=== PATIENT | female | born 1995 | race Caucasian/White ===

== ENCOUNTER → 2017-08-05 | Outpatient (CLI) | payer SELFPAY ==
--- NOTE | 2017-08-05 17:03 | RADIOLOGY REPORT (SQ) ---
EXAM DESCRIPTION: U/S [id number] TRNABD 1GES W/ODOP COMPLETED DATE/TIME: 08/05/2017 2:25 pm REASON FOR STUDY: ENCOUNTER FOR SUPERVISION OF OTHER NORMAL , FIRST TRIMESTER Z34.01 ENCNT R FOR SUPRVSN OF NORMAL FIRST PREG, FIRST TRIMES COMPARISON: None. TECHNIQUE: Transabdominal static and realtime grayscale images acquired of the pelvis. Additional se lected spectral and color Doppler images recorded. All images stored on PACs. CG: Not available at this reading LIMITATIONS: None. FINDINGS: EGA: 7 weeks 6 days by ultrasound. CORIE: 03/18/2018 by ultrasound FHR: Not visualized SUBCHORIONIC BLEED: No SIZE OF BLEED: Not applicable. UTERUS: The uterus measures 8.1 x 5.0 x 6.8 cm. Gestation sac is visualized, mean diameter 2.77 cm. CERVICAL LENGTH: The cervical length is 2.5 cm. Closed. RIGHT ADNEXA: Not visualized. LEFT ADNEXA: Not visualized. FREE FLUID: None. OTHER: [place] rump length, heart rate activity and yolk sac are not visualized. IMPRESSION: 1 Gestational sac is visualized. [place]-rump length, heart rate activity and yolk sac, are not visualized. A follow-up examination is suggested in 7 days for re-evaluation EGA: 7 weeks 6 days by ultrasound Trimester of : First - 0 to 13 weeks. TECHNICAL DOCUMENTATION: JOB ID: [id number] [employer]- All Rights Reserved
== END ==
LOC: RAD 13:39
PROVIDERS: ATTEND Nurse Practitioner Women's Health
DX: Z34.01 Encounter for supervision of normal first pregnancy, first trimester (principal)
CPT/HCPCS: 76801

== ENCOUNTER 2017-08-13 18:05 | Emergency (ER) | payer SELFPAY ==
--- NOTE | 2017-08-13 20:12 | ER Document Report ---
ED Medical Screen (RME) - General Chief Complaint: Vaginal Bleeding Stated Complaint: VAGINAL BLEEDING Time Seen by Provider: 08/13/17 20:01 Mode of Arrival: Ambulatory Information source: Patient Notes: Patient is a 21 year old female who is currently 7 weeks presents to the emergency department complaining of vaginal discharge onset today. Patient states that she noticed "old blood" on the toilet paper when she wiped today. Patient states that she has a scheduled ultrasound appointment on 08/15/2017. Patient is G1. TRAVEL OUTSIDE OF THE [place] IN LAST 30 DAYS: No - HPI Onset: This afternoon Onset/Duration: Sudden - Related Data Allergies/Adverse Reactions: No Known Allergies Allergy (Verified 08/13/17 18:06) Past Medical History - General Information source: Patient Last Menstrual Period: 06/01/17 - Social History Family history: Reviewed & Not Pertinent Renal/ Medical History: Denies: Hx Peritoneal Dialysis Review of Systems - Review of Systems Constitutional: No symptoms reported EENT: No symptoms reported Cardiovascular: No symptoms reported Respiratory: No symptoms reported Gastrointestinal: No symptoms reported Genitourinary: No symptoms reported Female Genitourinary: See HPI, , Vaginal bleeding Musculoskeletal: No symptoms reported Skin: No symptoms reported Hematologic/Lymphatic: No symptoms reported Neurological/Psychological: No symptoms reported -: Yes All other systems reviewed and negative Physical Exam - Vital signs Vitals: Temp Pulse Resp BP Pulse Ox 97.7 F 82 20 124/85 100 08/13/17 18:08 08/13/17 18:08 08/13/17 18:08 08/13/17 18:08 08/13/17 18:08 - Notes Notes: GENERAL: Alert, interacts well. No acute distress. HEAD: Normocephalic, atraumatic. EYES: Pupils equal, round, and reactive to light. Extraocular movements intact. ENT: Oral mucosa moist, tongue midline. NECK: Full range of motion. Supple. Trachea midline. LUNGS: Clear to auscultation bilaterally, no wheezes, rales, or rhonchi. No respiratory distress. HEART: Regular rate and rhythm. No murmurs, gallops, or rubs. ABDOMEN: Soft, non-tender. Non-distended. Bowel sounds present in all 4 quadrants. EXTREMITIES: Moves all 4 extremities spontaneously. NEUROLOGICAL: Alert and oriented x3. Normal speech. PSYCH: Normal affect, normal mood. SKIN: Warm, dry, normal turgor. No rashes or lesions noted. Course - Re-evaluation Re-evalutation: 08/13/17 20:07 Patient's RhoGam status will be checked as well as a transvaginal ultrasound to determine stage of and confirm RH type and vaginal bleeding. Patient stated she has an scheduled appointment to have a transvaginal ultrasound performed on 08/15/2017. 08/13/17 20:43 - Vital Signs Vital signs: Temp Pulse Resp BP Pulse Ox 97.7 F 82 20 124/85 100 08/13/17 18:08 08/13/17 18:08 08/13/17 18:08 08/13/17 18:08 08/13/17 18:08 - Laboratory Laboratory results interpreted by me: 08/13/17 20:15 Urine Blood MODERATE H Scribe Documentation - Scribe Written by Yudelka:: Yudelka Michel, 08/13/2017 20:13 acting as scribe for :: Gabe
[2017-08-13 20:32] LABS: APPEARANCE,URINE CLEAR; BILIRUBIN,URINE NEGATIVE (NEGATIVE); COLOR,URINE STRAW; GLUCOSE, URINE NEGATIVE (NEGATIVE); KETONES,URINE NEGATIVE (NEGATIVE); LEUKOCYTE ESTERASE,URINE NEGATIVE (NEGATIVE); NITRITE,URINE NEGATIVE (NEGATIVE); PROTEIN,URINE NEGATIVE (NEGATIVE); URINE SPECIFIC GRAVITY 1.006; UROBILINOGEN,URINE NEGATIVE mg/dL (<2.0)
--- NOTE | 2017-08-13 21:18 | ER Document Report ---
ED General - General Chief Complaint: Vaginal Bleeding Stated Complaint: VAGINAL BLEEDING Time Seen by Provider: 08/13/17 20:01 Mode of Arrival: Ambulatory Information source: Patient Notes: This is a 21-year-old female who presents to the emergency room with scant amount of vaginal bleeding. She did have an ultrasound 1 week ago which showed evidence of an early IUP (there was no heartbeat at that time). She denies any shanda abdominal pain. She denies any active vaginal bleeding at this time. TRAVEL OUTSIDE OF THE [place] IN LAST 30 DAYS: No - HPI Onset: Just prior to arrival Onset/Duration: Sudden Quality of pain: No pain Severity: None Pain Level: Denies Associated symptoms: denies: Chills, Fever, Nausea, Shortness of breath Exacerbated by: Denies Relieved by: Denies Similar symptoms previously: No Recently seen / treated by doctor: No - Related Data Allergies/Adverse Reactions: No Known Allergies Allergy (Verified 08/13/17 18:06) Past Medical History - General Information source: Patient Last Menstrual Period: 06/01/17 - Social History Smoking Status: Never Smoker Cigarette use (# per day): No Chew tobacco use (# tins/day): No Smoking Education Provided: No Frequency of alcohol use: None Drug Abuse: None Lives with: Family Family History: None Patient has suicidal ideation: No Patient has homicidal ideation: No - Past Medical History Cardiac Medical History: Reports: None Pulmonary Medical History: Reports: None EENT Medical History: Reports: None Neurological Medical History: Reports: None Endocrine Medical History: Reports: None Renal/ Medical History: Reports: None. Denies: Hx Peritoneal Dialysis Malignancy Medical History: Reports: None GI Medical History: Reports: None Musculoskeltal Medical History: Reports None Skin Medical History: Reports None Psychiatric Medical History: Reports: None Traumatic Medical History: Reports: None Infectious Medical History: Reports: None Surgical Hx: Negative Review of Systems - Review of Systems Constitutional: denies: Chills, Fever EENT: No symptoms reported Cardiovascular: No symptoms reported Respiratory: No symptoms reported Gastrointestinal: No symptoms reported Genitourinary: See HPI Female Genitourinary: See HPI Musculoskeletal: No symptoms reported Skin: No symptoms reported Hematologic/Lymphatic: No symptoms reported Neurological/Psychological: No symptoms reported Physical Exam - Vital signs Vitals: Temp Pulse Resp BP Pulse Ox 97.7 F 82 20 124/85 100 01/30/18 18:08 08/13/17 18:08 08/13/17 18:08 08/13/17 18:08 08/13/17 18:08 Notes: Physical exam: GENERAL: An-year-old female, alert and oriented 3, no acute distress HEAD: Atraumatic, normocephalic. EYES: Pupils equal round and reactive to light, extraocular movements intact, sclera anicteric, conjunctiva are normal. ENT: TMs normal, nares patent, oropharynx clear without exudates. Moist mucous membranes. NECK: Normal range of motion, supple without obvious mass or JVD. LUNGS: Breath sounds clear to auscultation bilaterally and equal. No wheezes rales or rhonchi. HEART: Regular rate and rhythm without murmurs, rubs or gallops. ABDOMEN: Soft, normoactive bowel sounds. No tenderness to palpation. No guarding, no rebound. No masses appreciated. EXTREMITIES: Normal range of motion, no pitting or edema. No clubbing or cyanosis. NEUROLOGICAL: Cranial nerves II through XII grossly intact. Normal speech, moving all extremities. PSYCH: Normal mood, normal affect. SKIN: Warm, Dry, normal turgor, no rashes or lesions noted. Course - Vital Signs Vital signs: Temp Pulse Resp BP Pulse Ox 98.5 F 81 20 101/61 100 08/13/17 22:52 08/13/17 22:52 08/13/17 18:08 08/13/17 22:52 08/13/17 22:52 - Laboratory Laboratory results interpreted by me: 08/13/17 08/13/17 20:15 20:15 Beta HCG, Quant 41415.00 H Urine Blood MODERATE H - Diagnostic Test Radiology reviewed: Image reviewed, Reports reviewed - Transvaginal ultrasound shows a 7 week gestation intrauterine without a heartbeat. Discharge - Discharge Clinical Impression: Vaginal bleeding Condition: Stable Disposition: HOME, SELF-CARE Instructions: Leonel ([facility]) Additional Instructions: As we discussed, the ultrasound showed an intrauterine at 7 weeks gestation without a heartbeat. This suggests he may be having a demise. I would like you to follow-up with the [facility]. He should call the health department to get a referral. I will leave the number for the [facility] clinic. Your blood type was Rh- and you did get RhoGam while in the emergency room. Return to the emergency room for any abdominal pain or worsening bleeding. Referrals: RAUL JENKINS MD [ACTIVE STAFF] - Follow up as needed (This is the number the [facility])
--- NOTE | 2017-08-13 21:47 | RADIOLOGY REPORT (SQ) ---
EXAM DESCRIPTION: U/S OB TRANSVAG W/DOPPLER COMPLETED DATE/TIME: 08/13/2017 9:22 pm REASON FOR STUDY: pelvic pain, back pain COMPARISON: None. TECHNIQUE: Transvaginal static and realtime grayscale images acquired of the pelvis. Additional dania cted spectral and color Doppler images recorded. All images stored on PACs. bHCG: Not available. LIMITATIONS: None. FINDINGS: FETUS: IUP, pole measuring 1.0 cm. EGA: 7 week 1 day CORIE: 03/31/2018 FHR: Cardiac activity not visualized. SUBCHORIONIC BLEED: Yes. SIZE OF BLEED: 1.4 cm. UTERUS: No masses. No anomalies. CERVICAL LENGTH: 2.8 cm. Closed. RIGHT ADNEXA: Ovary not identified. No adnexal free fluid. No adnexal masses. LEFT ADNEXA: Normal ovary with normal vascular flow. No adnexal free fluid. No adnexal masses. FREE FLUID: None. OTHER: No other significant finding. IMPRESSION: An IUP is present with pole measuring approximately 1 cm. This corresponds to a 7 week 1 day gestation. Cardiac activity would typically be seen at this stage, but is not on today's study. demise is possible. Close followup advised. Small subchorionic hematoma is present. Trimester of : First - 0 to 13 weeks. TECHNICAL DOCUMENTATION: JOB ID: [id number]- All Rights Reserved
[2017-08-13 22:55] VITALS: BP 101/61
== END 2017-08-13 23:29 | disposition home or self-care (01) ==
LOC: ER 18:05
DX: O20.9 Hemorrhage in early pregnancy, unspecified (principal); Z3A.01 Less than 8 weeks gestation of pregnancy
CPT/HCPCS: 99284; 96374; 86900; 86901; 36415; 86850; 84702; 81001; 76817; 93976; J2790

== ENCOUNTER → 2017-08-20 | Outpatient (CLI) | payer MEDICAID | LOC: OCH 17:43 | PROVIDERS: ATTEND Nurse Practitioner Women's Health | DX: O36.80X0 Pregnancy with inconclusive fetal viability, not applicable or unspecified (principal) | CPT/HCPCS: 36415; 84702 ==

== ENCOUNTER 2017-08-25 01:49 | Emergency (ER) | payer MEDICAID ==
[2017-08-25] MEDS ORDERED: NORMAL SALINE 1000 ML 1,000 ML IV ONE ×2 (02:45)
[2017-08-25] MEDS ORDERED: ONDANSETRON HCL INJ/PF 4 MG/2 ML SDV IV ONE ×2 (02:48→03:34)
[2017-08-25] MEDS ORDERED: MORPHINE SULFATE 10 MG/ML INJ IV ONE (02:48)
[2017-08-25] MEDS ORDERED: FENTANYL CITRATE INJ/PF 100 MCG/2 ML AMPUL IV ONE ×3 (02:52→04:37)
[2017-08-25 03:22] LABS: ABSOLUTE LYMPHOCYTES (AUTO) 0.9 10^3/uL (0.5-4.7); ABSOLUTE MONOCYTES (AUTO) 0.3 10^3/uL (0.1-1.4); ABSOLUTE NEUT (AUTO) 8.1 10^3/uL (1.7-8.2); BASOPHILS % (AUTO) 0.2 % (0-2); EOSINOPHILS % (AUTO) 0.5 % (0-6); HEMATOCRIT 37.6 % (36.0-47.0); HEMOGLOBIN 12.8 g/dL (12.0-15.5); LYMPHOCYTES % (AUTO) 9.1 % (13-45); MEAN CORPUSCULAR HEMOGLOBIN 29.4 pg (27.0-33.4); MEAN CORPUSCULAR VOLUME 86 fl (80-97); MONOCYTES % (AUTO) 2.8 % (3-13); PLATELET COUNT 242 10^3/uL (150-450); RED BLOOD COUNT 4.36 10^6/uL (3.72-5.28); RED CELL DISTRIBUTION WIDTH 13.2 % (11.5-14.0); SEGMENTED NEUTROPHILS % (AUTO) 87.4 % (42-78); TOTAL CELLS COUNTED % (AUTO) 100 %; WHITE BLOOD COUNT 9.3 10^3/uL (4.0-10.5)
[2017-08-25 03:35] LABS: ALANINE AMINOTRANSFERASE 40 U/L (9-52); ALBUMIN 4.3 g/dL (3.5-5.0); ALKALINE PHOSPHATASE 76 U/L (38-126); ANION GAP 7 (5-19); ASPARTATE AMINO TRANSFERASE 31 U/L (14-36); BILIRUBIN,DIRECT 0.3 mg/dL (0.0-0.4); BILIRUBIN,TOTAL 0.5 mg/dL (0.2-1.3); BLOOD UREA NITROGEN 11 mg/dL (7-20); CALCIUM 9.5 mg/dL (8.4-10.2); CARBON DIOXIDE 26 mmol/L (22-30); CHLORIDE 106 mmol/L (98-107); GLUCOSE 147 mg/dL (75-110); LIPASE 90.4 U/L (23-300); POTASSIUM 3.8 mmol/L (3.6-5.0); SODIUM 139.4 mmol/L (137-145); TOTAL PROTEIN 6.7 g/dL (6.3-8.2)
[2017-08-25] MEDS ORDERED: DICYCLOMINE HCL INJ 20 MG/2 ML AMPULE IM ONE (04:45)
--- NOTE | 2017-08-25 04:45 | RADIOLOGY REPORT (SQ) ---
EXAM DESCRIPTION: U/S 1TRIMESTER/1GEST W/DOPPLER CLINICAL HISTORY: 21 years Female, eval misscarriage +preg COMPARISON: 08/05/2017 TECHNIQUE: Complete first trimester obstetrical ultrasound obtained using transabdominal imaging. The patient refused transvaginal imaging. FINDINGS: Uterus measures 10.3 x 4.9 x 4.7 cm. Within the lower portion of the endometrium there is an ovoid cystic structure which may represent a gestational sac. This region measures 4.7 cm which would be compatible with an estimated gestational age of 10 weeks, 2 days if it does represent a gestational sac. No pole identified. No cardiac activity identified. Cervical length of 3.1 cm. No myometrial abnormalities. The ovaries are not identified bilaterally. No large adnexal masses. IMPRESSION: 1. Suboptimal evaluation due to lack of transvaginal imaging. 2. There is a cystic structure in the lower uterine segment extending into the cervix which may represent a failed gestational sac with an estimated gestational age of 10 weeks, 2 days. No pole or cardiac activity identified. These findings are compatible with demise/in progress miscarriage. Close continued clinical, laboratory, and sonographic follow-up recommended.
[2017-08-25] MEDS ORDERED: KETOROLAC TROMETHAMINE INJ/PF 30 MG/1 ML SDV IV ONE (04:57)
--- NOTE | 2017-08-25 05:13 | ER Document Report ---
ED General - General Chief Complaint: Vag Bleeding, +preg <12wks Stated Complaint: VAGINAL BLEEDING Time Seen by Provider: 08/25/17 02:31 TRAVEL OUTSIDE OF THE [place] IN LAST 30 DAYS: No - HPI Patient complains to provider of: Vaginal bleeding Notes: Patient coming in for evaluation of vaginal bleeding. Patient was seen at the end of July for vaginal bleeding and was found to have demise. Patient states that sometimes she follow-up with the health department with a lowering of her beta hCG. Patient states having clots night with significant suprapubic abdominal pain. Denies fevers chills nausea vomiting diarrhea. Patient is a - Related Data Allergies/Adverse Reactions: No Known Allergies Allergy (Verified 08/13/17 18:06) Past Medical History - Social History Smoking Status: Current Every Day Smoker Family History: None Renal/ Medical History: Denies: Hx Peritoneal Dialysis Review of Systems - Review of Systems Constitutional: No symptoms reported EENT: No symptoms reported Cardiovascular: No symptoms reported Respiratory: No symptoms reported Gastrointestinal: Abdominal pain Genitourinary: No symptoms reported Female Genitourinary: Vaginal bleeding Musculoskeletal: No symptoms reported Skin: No symptoms reported Hematologic/Lymphatic: No symptoms reported Neurological/Psychological: No symptoms reported -: Yes All other systems reviewed and negative Physical Exam - Vital signs Vitals: Temp Pulse Resp BP Pulse Ox 97.6 F 89 20 132/95 H 97 08/25/17 01:57 08/25/17 01:57 08/25/17 01:57 08/25/17 01:57 08/25/17 01:57 Interpretation: Normal - General General appearance: Appears well, Alert - HEENT Head: Normocephalic, Atraumatic Eyes: Normal Pupils: PERRL - Respiratory Respiratory status: No respiratory distress Chest status: Nontender Breath sounds: Normal Chest palpation: Normal - Cardiovascular Rhythm: Regular Heart sounds: Normal auscultation Murmur: No - Abdominal Inspection: Normal Distension: No distension Bowel sounds: Normal Tenderness: Nontender Organomegaly: No organomegaly - Genitourinary External exam: Normal, Other - Blood at the entrance to the vagina no rapid bleeding patient deferring pelvic ultrasound and pelvic exam - Back Back: Normal, Nontender - Extremities General upper extremity: Normal inspection, Nontender, Normal color, Normal ROM , Normal temperature General lower extremity: Normal inspection, Nontender, Normal color, Normal ROM , Normal temperature, Normal weight bearing. No: Mickey's sign - Neurological Neuro grossly intact: Yes Cognition: Normal Orientation: AAOx4 [place] Coma Scale Eye Opening: Spontaneous [place] Coma Scale Verbal: Oriented [place] Coma Scale Motor: Obeys Commands [place] Coma Scale Total: 15 Speech: Normal Motor strength normal: LUE, RUE, LLE, RLE Sensory: Normal - Psychological Associated symptoms: Normal affect, Normal mood - Skin Skin Temperature: Warm Skin Moisture: Dry Skin Color: Normal Course - Re-evaluation Re-evalutation: 08/25/17 05:11 Ultrasound shows material at the entrance to the cervix no heartbeat seen consistent with demise. This is consistent with ultrasound on the . Beta hCGs have precipitously decreased. Patient continued to be in a decent amount of pain with contractions. Patient was given multiple doses of fentanyl as that we are limited in our supplies of morphine and Dilaudid patient was also given a dose of ketorolac and Bentyl. This helped intermittently with pain. I did discuss with the OPTOMETRY TEACHER on-call Dr. Mac who said at this time patient should be reassured pain under control however no surgical intervention he deems warranted at this time. 08/25/17 05:43 Patient still screaming and moaning in pain after multiple doses of fentanyl will give the patient a dose of Dilaudid I did recontact the OPTOMETRY TEACHER on-call Dr. Mac did express my concern that the patient more likely will be difficult to have her pain controlled patient is nauseous now concerned about patient taking oral medications. Dr. Mac requested that we continue her measures here in the ER and that he will let the oncoming OPTOMETRY TEACHER no other patients presents here in ER. I did again offer pelvic examination today for evaluation of material stuck in the cervix however patient is still declining. - Vital Signs Vital signs: Temp Pulse Resp BP Pulse Ox 98.4 F 89 14 102/69 99 08/25/17 07:21 08/25/17 01:57 08/25/17 07:00 08/25/17 07:00 08/25/17 07:00 - Laboratory Result Diagrams: 08/25/17 03:00 08/25/17 03:00 Laboratory results interpreted by me: 02/11/18 02/11/18 03:00 03:00 Seg Neutrophils % 87.4 H Lymphocytes % 9.1 L Monocytes % 2.8 L Glucose 147 H Beta HCG, Quant 2262.30 H Discharge - Discharge Clinical Impression: Miscarriage Condition: Good Disposition: HOME, SELF-CARE Instructions: Miscarriage Impending ([facility]), [facility] Additional Instructions: Please take medication as prescribed. Return to the ER if symptoms worsen or if bleeding worsens. Please follow-up with the health department or OPTOMETRY TEACHER as stated. We will need to make sure that her beta hCG levels go to 0. SHe may also still take Tylenol and Motrin for pain control. Prescriptions: Ondansetron [Zofran Odt] 4 mg PO Q6 PRN #30 tab.rapdis PRN Reason: For Nausea/Vomiting Oxycodone HCl 5 mg PO Q6 PRN #30 tablet PRN Reason: Forms: Return to Work Referrals: CHERYL KERR MD [ACTIVE STAFF] - Follow up as needed
[2017-08-25] MEDS ORDERED: HYDROMORPHONE HCL INJ/PF 2 MG/ML AMPULE IV ONE (05:27)
[2017-08-25 07:46] VITALS: BP 102/69
== END 2017-08-25 07:21 | disposition home or self-care (01) ==
LOC: ER 01:49
DX: O03.9 Complete or unspecified spontaneous abortion without complication (principal); F17.200 Nicotine dependence, unspecified, uncomplicated; R10.9 Unspecified abdominal pain
CPT/HCPCS: 96376; 99284; 96372; 96361; 96374; 96375; 86900; 86901; 36415; 86870; 86850; 84702; 83690; 85025; 80053; 76801; 93976; J0500; J3010; J1885; J1170; J2405; J7030